=== PATIENT | male | born 1945 | race Caucasian/White ===

== ENCOUNTER → 2018-03-31 | Day surgery (SDC) | payer MEDICARE ==
[~2018-03-31] MED LIST: BENICAR20 MG PO; CELEBREX100 MG PO; CELEBREX200 MG PO; FINASTERIDE5 MG PO; FLOMAX0.4 MG PO; GLUCAGON FOR INJ 1 MG VIAL ONE; LEVOCETIRIZINE D5 MG PO; LOTREL 10-20 M1 EACH PO; MIDAZOLAM HCL 2 MG/2 ML VIAL ONE; MULTI-VITAMIN1 EACH PO; NABUMETONE500 MG PO; NEXIUM40 MG PO; PROPOFOL IV EMULSION 10 MG/ML 50 ML VIAL ONE; RANITIDINE HCL150 MG PO; Z.0.AMLODIPINE BESY1 PO; Z.0.ATENOLOL50 MG PO; Z.0.FLOMAX0.4 MG PO; Z.0.LIPITOR40 MG PO
--- OUTSIDE RECORDS SUMMARY | 2018-03-31 11:31 | XMS REPORT | Clinical Summary ---
Author Author [facility] Organization [facility] Address Unknown Phone Unavailable Care Team Providers Care Maintenance Shop Technician Name Role Phone Ponce Olguin MD PCP Allergies No Known Allergies Current Medications Prescription Sig. Disp. Refills Start End Date Status Date atenolol (TENORMIN) 25 MG 11/25/19 Active tablet 17 atorvastatin (LIPITOR) 10 11/25/19 Active MG tablet 17 esomeprazole (NexIUM) 40 01/15/20 Active MG capsule 17 finasteride (PROSCAR) 5 01/16/20 Active mg tablet 17 ranitidine (ZANTAC) 150 Take 150 mg by mouth 2 Active MG tablet (two) times a day. olmesartan (BENICAR) 20 Take 20 mg by mouth Active MG tablet daily. celecoxib (CeleBREX) 200 TAKE ONE CAPSULE BY MOUTH 60 capsule 2 03/29/20 Active MG capsule TWICE A DAY 18 celecoxib (CeleBREX) 200 Take 1 capsule (200 mg 60 capsule 3 03/04/20 03/29/20 Discontin MG capsule total) by mouth 2 (two) 17 18 ued times a day. Active Problems No known active problems Encounters Date Type Specialty Care Team Description 03/29/2018 Refill Orthopedic Surgery En Llamas MD after 03/30/2017 Family History Medical History Relation Name Comments Heart disease Brother Hypertension Brother Cancer Father Cancer Mother Heart disease Sister Hypertension Sister Relation Name Status Comments Brother Father Mother Sister Social History Tobacco Use Types Packs/Day Years Used Date Never Smoker Smokeless Tobacco: Never Used Alcohol Use Drinks/Week oz/Week Comments Yes Sex Assigned at Date Recorded Not on file Last Filed Vital Signs Not on file Plan of Treatment Health Maintenance Due Date Last Done Comments COLON CANCER SCREENING 1995 SHINGRIX VACCINE (#1) 1995 ZOSTER VACCINE 2005 PNEUMOCOCCAL 2010 POLYSACCHARIDE VACCINE AGE 65 AND OVER PNEUMOCOCCAL-13 2010 INFLUENZA VACCINE 01/04/2018 Results Not on fileafter 03/30/2017 Insurance Payer Benefit Subscriber ID Type Phone Address Plan / Group HUMANA HUMANA xxxxxxxxx [place] [address]
[2018-03-31 14:55] VITALS: BP 145/77
--- NOTE | 2018-03-31 16:07 | Operative Report ---
DATE OF PROCEDURE: March 31, 2018 REFERRING PHYSICIAN: Dr. Ponce Canada. PROCEDURE PERFORMED: Esophagogastroduodenoscopy with biopsies and a colonoscopy with biopsies. INDICATIONS FOR ESOPHAGOGASTRODUODENOSCOPY: Upper abdominal pain. History of melena. INDICATIONS FOR COLONOSCOPY: Personal history of colon polyps, colon cancer surveillance. MEDICATION: Patient was done under MAC. Please see anesthesiologist's note. PROCEDURE: With patient in the left lateral decubitus position, the flexible fiberoptic Olympus gastroscope was introduced into the esophagus under direct visualization without any difficulty. There was some patchy erythema noted in distal esophagus. The scope was then advanced with ease into the stomach traversing a small sliding hiatal hernia. Mucosa overlying the antrum and the body revealed some patchy erythema and mild to moderate edema and biopsies were obtained and sent to stain for H. pylori. There was a minute submucosal nodule also noted in the antrum that was biopsied. The pylorus was of normal contour and shape. Was intubated with ease and the scope was advanced all the way to the 2nd portion of the duodenum. The scope was then withdrawn slowly and there was a submucosal nodule noted in the 2nd portion of the duodenum and that was biopsied. There were several ulcers noted in the duodenal bulb and some had black exudate in the crater compatible with recent hemorrhage. The scope was then withdrawn back into the stomach and retroflexed. Mucosa overlying the fundus and cardia appeared to be within normal limits. The scope was then straightened out. The stomach was decompressed. Scope was subsequently withdrawn. Patient tolerated procedure well. IMPRESSION: 1. Distal esophagitis. 2. Small sliding hiatal hernia. 3. Gastritis biopsied. Biopsy sent to stain for H. pylori. 4. Submucosal nodule. Antrum biopsied. 5. Duodenal ulcers, some with stigmata of recent hemorrhage. 6. Minute submucosal nodule 2nd portion of duodenum biopsied. PLAN: Follow up histology. Initiate Nexium 40 mg 1 p.o. q.a.m. a.c. Continue Zantac 150 mg 1 p.o. nightly. PROCEDURE: Patient was then turned around and after adequate lubrication of the anal canal a flexible fiberoptic Olympus colonoscope was inserted into the rectum with ease and advanced all the way to the cecum. It was then withdrawn slowly. Mucosa overlying the cecum, ascending colon and transverse colon appeared to be within normal limits. Some mild patchy inflammatory changes were noted in the left colon and multiple biopsies were obtained. The scope was then retroflexed into the distal rectum and small internal hemorrhoids were noted, none of which was actively bleeding. The scope was then straightened out. The scope was subsequently withdrawn. Patient tolerated the procedure well. IMPRESSION 1. Mild patchy left-sided colitis. 2. Internal hemorrhoids, none actively bleeding. PLAN: Follow up histology. Initiate VSL#3 one p.o. daily. The patient might benefit from a followup colonoscopy in 5 years. Job#: [id number] GH cc:PONCE CANADA MD
== END | disposition home or self-care (01) ==
LOC: OR 11:27
PROVIDERS: ATTEND Internal Medicine Gastroenterology
DX: K29.70 Gastritis, unspecified, without bleeding (principal); K31.7 Polyp of stomach and duodenum; K51.50 Left sided colitis without complications; K26.9 Duodenal ulcer, unspecified as acute or chronic, without hemorrhage or perforation; K31.89 Other diseases of stomach and duodenum; K21.9 Gastro-esophageal reflux disease without esophagitis; K63.89 Other specified diseases of intestine; K20.9 Esophagitis, unspecified; K44.9 Diaphragmatic hernia without obstruction or gangrene; K64.8 Other hemorrhoids; I10 Essential (primary) hypertension; E66.01 Morbid (severe) obesity due to excess calories; Z01.810 Encounter for preprocedural cardiovascular examination; Z85.51 Personal history of malignant neoplasm of bladder; Z87.891 Personal history of nicotine dependence
CPT/HCPCS: 43239; 45380; 88305; 88312; 93005; J1610; J2250; 45378

== ENCOUNTER → 2018-05-10 | Day surgery (SDC) | payer MEDICARE ==
[2018-05-08 15:18] LABS: BASOPHILS # (AUTO) 0.1 (0.0-0.1); BASOPHILS % 0.8 % (0.0-1.0); EOSINOPHILS # (AUTO) 0.3 (0.0-0.4); EOSINOPHILS % 3.4 % (0.0-6.0); HEMATOCRIT 42.2 % (38.2-49.6); HEMOGLOBIN 14.2 g/dL (14.0-18.0); LYMPHOCYTES % 24.7 % (18.0-39.1); MEAN CORPUSCULAR HEMOGLOBIN 30.1 pg (28-32); MEAN CORPUSCULAR HGB CONC 33.6 g/dL (31-35); MEAN CORPUSCULAR VOLUME 89.4 fL (81-99); MONOCYTES # (AUTO) 0.9 (0.2-0.8); MONOCYTES % 11.1 % (4.4-11.3); NEUTROPHILS # (AUTO) 4.7 (2.1-6.9); NEUTROPHILS % 59.7 % (38.7-80.0); PLATELET COUNT 208 x10e3/uL (140-360); RED BLOOD COUNT 4.72 x10e6/uL (4.3-5.7); RED CELL DISTRIBUTION WIDTH 12.4 % (11.7-14.4)
--- NOTE | 2018-05-08 15:35 | Diagnostic Imaging Report ---
EXAMINATION: PA and lateral views of the chest. COMPARISON: None CLINICAL HISTORY: Preadmitted for urological procedure DISCUSSION: The lungs are well-inflated. Hazy opacity in the right middle and lower lobes may reflect prominent epicardial fat. Otherwise no consolidation, pleural effusion, or pneumothorax. Tortuous thoracic aorta with otherwise normal cardiomediastinal contour. Cervical spine fusion hardware. No acute osseous abnormality. IMPRESSION: No acute cardiopulmonary abnormalities. Signed by: Dr. Shahriar Doshi M.D. on 05/08/2018 3:32 PM
[~2018-05-10] MED LIST changes: +ACETAMINOPHEN 1000 MG/100 ML IV ONE; +CEFTRIAXONE SOD 1 GM VIAL ONE; +DEXAMETHASONE SOD PHOS INJ 4 MG/ML VIAL ONE; +EPHEDRINE SULFATE INJ 50 MG/10 ML SYR ONE; +FENTANYL CITRATE/PF 100MCG/2 ML INJ ONE; +GENTAMICIN 80MG/NS 100 ML 200 ML IV ONE; -GLUCAGON FOR INJ 1 MG VIAL ONE; +LIDOCAINE HCL 2% LOCAL INJ 5 ML SDV VIAL INJ ONE; +ONDANSETRON HCL INJ 2 MG/ML VIAL ONE; +PROPOFOL IV EMULSION 10 MG/ML 20 ML VIAL ONE; -PROPOFOL IV EMULSION 10 MG/ML 50 ML VIAL ONE; +SEVOFLURANE INHAL SOLN 250 ML PEN BTL ONE
--- OUTSIDE RECORDS SUMMARY | 2018-05-10 06:59 | XMS REPORT | Clinical Summary ---
Author Author [facility] Address Unknown Phone Unavailable Care Team Providers Care Wall Insulation Sprayer Name Role Phone Ponce Olguin MD PCP Allergies No Known Allergies Medications End Date Status Medication Sig Dispensed Refills Start Date Active atenolol (TENORMIN) 25 MG 0 tablet 7 Active atorvastatin (LIPITOR) 10 0 MG tablet 7 Active esomeprazole (NexIUM) 40 0 01/14/201 MG capsule 7 Active finasteride (PROSCAR) 5 0 mg tablet 7 Active ranitidine (ZANTAC) 150 Take 150 mg 0 MG tablet by mouth 2 (two) times a day. Active olmesartan (BENICAR) 20 Take 20 mg by 0 MG tablet mouth daily. Active celecoxib (CeleBREX) 200 TAKE ONE 60 capsule 2 03/29/201 MG capsule CAPSULE BY 8 MOUTH TWICE A DAY 03/29/2018 Discontinued celecoxib (CeleBREX) 200 Take 1 60 capsule 3 03/04/201 MG capsule capsule (200 7 mg total) by mouth 2 (two) times a day. Active Problems No known active problems Encounters Care Team Description Date Type Specialty En Llamas MD 03/29/2018 Refill Orthopedic Surgery after 05/09/2017 Family History Medical History Relation Name Comments Heart disease Brother Hypertension Brother Cancer Father Cancer Mother Heart disease Sister Hypertension Sister Relation Name Status Comments Brother Father Mother Sister Social History Date Tobacco Use Types Packs/Day Years Used Never Smoker Smokeless Tobacco: Never Used Alcohol Use Drinks/Week oz/Week Comments Yes Sex Assigned at Date Recorded Not on file Industry Job Start Date Occupation Not on file Not on file Not on file Travel End Travel History Travel Start No recent travel history available. Last Filed Vital Signs Not on file Plan of Treatment Health Maintenance Due Date Last Done Comments COLON CANCER SCREENING 1995 SHINGRIX VACCINE (1 of 2) 1995 ZOSTER VACCINE 2005 PNEUMOCOCCAL 2010 POLYSACCHARIDE VACCINE AGE 65 AND OVER PNEUMOCOCCAL-13 2010 INFLUENZA VACCINE 01/04/2018 Results Not on fileafter 05/09/2017 Insurance Payer Benefit Subscriber ID Type Phone Address Plan / Group HUMANA HUMANA xxxxxxxxx PPO CHOICE CARE PPO Advance Directives Patient has advance care planning documents on file. For more information, ochoa olvera contact: Brian Anderson [address] [place] [address]
--- OUTSIDE RECORDS SUMMARY | 2018-05-10 06:59 | XMS REPORT ---
[facility] Address Unknown Phone Unavailable Care Team Providers Care Education Nurse Name Role Phone CHAMP SHETTY Unavailable Unavailable Problems This patient has no known problems. Allergies, Adverse Reactions, Alerts This patient has no known allergies or adverse reactions. Medications This patient has no known medications. Results Test Description Test Time Test Comments Text Results Atomic Results Result Comments CHEST 2 VIEWS 2018-05-08 15:29:00 [facility] [address] [place] [address] Patient Name: RICH MELGOZA MR #: [id number] : 1945 Age/Sex: 72/M Req #: [id number] [facility] Physician: Ordered by: CHAMP SHETTY MD Report #: [id number] Location: OR Room/Bed: Procedure: [id number] DX/CHEST 2 VIEWS Exam Date: 05/08/18 Exam Time: 1520 REPORT STATUS: Signed EXAMINATION: PA and lateral views of the chest. COMPARISON: None CLINICAL HISTORY: Preadmitted for urological procedure DISCUSSION: The lungs are well-inflated. Hazy opacity in the right middle and lower lobes may reflect prominent epicardial fat. Otherwise no consolidation, pleural effusion, or pneumothorax. Tortuous thoracic aorta with otherwise normal cardiomediastinal contour. Cervical spine fusion hardware. No acute osseous abnormality. IMPRESSION: No acute cardiopulmonary abnormalities. Signed by: Dr. Travis Agurire M.D. on 05/08/2018 3:32 PM Dictated By: TRAVIS AGUIRRE MD [id number] Transcribed By: KENNETH on 05/08/18 153 COPY TO: CHAMP SHETTY MD
[2018-05-10 12:00] VITALS: BP 140/64
--- NOTE | 2018-05-10 19:56 | Operative Report ---
DATE OF PROCEDURE: May 10, 2018 PREOPERATIVE DIAGNOSES: 1. Obstructive benign prostatic hypertrophy. 2. Bladder cancer. POSTOPERATIVE DIAGNOSES: 1. Obstructive benign prostatic hypertrophy. 2. Bladder cancer. OPERATIONS PERFORMED: 1. Cystourethroscopy with bilateral ureteral catheterization and retrograde ureteropyelography (separate procedure performed for the bladder cancer). 2. Interpretation of retrograde ureteropyelography. 3. Supervision of fluoroscopy, no radiologist present. 4. Cystourethroscopy with transurethral implantation of UroLift implants x4 (separate procedure performed for the obstructive benign prostatic hypertrophy). ANESTHESIA: General. COMPLICATIONS: None. CLINICAL SUMMARY: Vinnie Guerrero is a 72-year-old man with obstructive BPH. The patient has been on Proscar and Flomax, and is failing medical therapy. The patient has a history of bladder cancer and has been undergoing regular surveillance. He is brought to the operating room today for UroLift implants in hopes of improving his symptomatology and potentially allowing the patient to decrease his medication use. He is aware of the risks of bleeding, infection, injury to adjacent structures, need for additional procedures, and elected to proceed. PROCEDURE IN DETAIL: Informed consent was verified. Vinnie Guerrero was properly identified, taken to the operating room, and placed on the cystoscopy table in a supine position. Anesthesia was uneventfully begun. The patient was then carefully and gently repositioned in the dorsal lithotomy position with all pressure points well padded. His genitalia were prepared and draped in usual sterile fashion. The 22.5-Central African cystourethroscope sheath with the visual obturator in place was atraumatically inserted into the patient's urethra. It was guided down the unremarkable distal urethra, through some wide caliber non-clinically significant, non-obstructing proximal urethral and lisandra-sphincteric strictures. We passed the normal sphincter region and went through the prostate bed, which was significant for bilobar prostatic hypertrophy with a slightly elevated median bar. Panendoscopy of the urinary bladder revealed mild trabeculations, but no tumors, no stones, no diverticula. No suspicious mucosal lesions were identified. Normally positioned and configured ureteral orifices were noted. An 8-Central African catheter was used to cannulate each ureter, and retrograde ureteral pyelograms were performed. Interpretation of retrograde ureteropyelography: Contrast was instilled in retrograde fashion bilaterally. There were no tumors, no stones, and no diverticula. Unobstructed drainage was observed bilaterally fluoroscopically. The cystoscope was withdrawn. A 20-Central African UroLift cystoscope was inserted atraumatically with the obturator in place. We then proceeded by implanting UroLift implants anterolaterally on either side 1.5 cm distal to the bladder neck and at the level of the verumontanum. Once all 4 implants were inserted, visualization with the cystoscope revealed that there was a continuous open anterior channel with excellent hemostasis. The bladder was drained. The cystoscope was withdrawn. A belladonna and opium suppository was placed revealing a 40 g prostate that is smooth, non-fluctuant, and without any nodules. The patient was then uneventfully reversed from anesthesia and taken to the recovery room in stable condition. There were no complications to the procedure. The patient tolerated the procedure well. Explicit postop instructions were given. We will follow the patient up in the office, at which point in time, will perform uroflowmetry and bladder ultrasonography. Job#: [id number]
== END | disposition home or self-care (01) ==
LOC: OR 06:56
PROVIDERS: ATTEND Urology
DX: N40.1 Benign prostatic hyperplasia with lower urinary tract symptoms (principal); N13.8 Other obstructive and reflux uropathy; C67.9 Malignant neoplasm of bladder, unspecified; N32.89 Other specified disorders of bladder; G47.33 Obstructive sleep apnea (adult) (pediatric); I10 Essential (primary) hypertension; K44.9 Diaphragmatic hernia without obstruction or gangrene; K25.9 Gastric ulcer, unspecified as acute or chronic, without hemorrhage or perforation; R00.1 Bradycardia, unspecified; I44.4 Left anterior fascicular block; K21.9 Gastro-esophageal reflux disease without esophagitis; F41.9 Anxiety disorder, unspecified; Z01.812 Encounter for preprocedural laboratory examination; Z01.818 Encounter for other preprocedural examination; Z87.891 Personal history of nicotine dependence
CPT/HCPCS: 52005; C9740; 36415; 71046; 74420; 85025; J0696; J1100; J1580; J2001; J2250; J2405; L8699

== ENCOUNTER → 2018-05-24 | Day surgery (SDC) | payer MEDICARE ==
[~2018-05-24] MED LIST changes: -ACETAMINOPHEN 1000 MG/100 ML IV ONE; -CEFTRIAXONE SOD 1 GM VIAL ONE; -DEXAMETHASONE SOD PHOS INJ 4 MG/ML VIAL ONE; -EPHEDRINE SULFATE INJ 50 MG/10 ML SYR ONE; -GENTAMICIN 80MG/NS 100 ML 200 ML IV ONE; -LIDOCAINE HCL 2% LOCAL INJ 5 ML SDV VIAL INJ ONE; -ONDANSETRON HCL INJ 2 MG/ML VIAL ONE; -PROPOFOL IV EMULSION 10 MG/ML 20 ML VIAL ONE; +PROPOFOL IV EMULSION 10 MG/ML 50 ML VIAL ONE; -SEVOFLURANE INHAL SOLN 250 ML PEN BTL ONE
--- OUTSIDE RECORDS SUMMARY | 2018-05-24 07:12 | XMS REPORT | Clinical Summary ---
Author Author [facility] Organization [facility] Address Unknown Phone Unavailable Care Team Providers Care Log Haul Operator Name Role Phone Ponce Olguin MD PCP [...] Llamas MD 03/29/2018 Refill Orthopedic Surgery after 05/23/2017 Family History Medical History Relation Name Comments [...] Last Done Comments COLON CANCER SCREENING 1995 SHINGLES VACCINES (1995 2) PNEUMOCOCCAL 2010 POLYSACCHARIDE VACCINE AGE 65 AND OVER PNEUMOCOCCAL-13 2010 INFLUENZA VACCINE 01/04/2018 Results Not on fileafter 05/23/2017 Insurance Payer Benefit Subscriber ID Type Phone Address Plan / Group HUMANA HUMANA xxxxxxxxx PPO CHOICE CARE PPO Advance Directives Patient has advance care planning documents on file. For more information, ochoa olvera contact: Brian Anderson [address] [place] [address]
[2018-05-24 09:40] VITALS: BP 110/74
--- NOTE | 2018-05-24 10:58 | Operative Report ---
DATE OF PROCEDURE: May 24, 2018 REFERRING PHYSICIAN: Dr. Pattie Canada PROCEDURE PERFORMED: Esophagogastroduodenoscopy with biopsy. INDICATIONS FOR EGD: History of gastric submucosal nodule. MEDICATION: Patient was done under MAC. Please see anesthesiologist's note. PROCEDURE: With patient in the left lateral decubitus position, the flexible fiberoptic Olympus gastroscope was introduced into the esophagus under direct visualization without any difficulty. There was some patchy erythema noted in the distal esophagus. The scope was then advanced with ease into the stomach traversing a small sliding hiatal hernia. Mucosa overlying the antrum and the body revealed some patchy areas of erythema. The previously described submucosal nodule was noted in the proximal along the greater curvature that was extensively biopsied. The pylorus was of normal contour and shape. It was intubated with ease. The scope was advanced all the way to the 2nd portion of the duodenum. The scope was then withdrawn slowly. An approximately 4-mm nodule was noted at the junction of the bulb and 2nd portion that was biopsied. The scope was then withdrawn back into the stomach and retroflexed. The mucosa overlying the fundus and the cardia appeared to be within normal limits. The scope was then straightened out. It was subsequently withdrawn. Patient tolerated the procedure well. IMPRESSION 1. Distal esophagitis, mild. 2. Small sliding hiatal hernia. 3. Gastritic submucosal nodule, antrum, extensively biopsied. 4. An approximately 4-mm nodule junction of bulb and 2nd portion, biopsied. PLAN: Follow up histology. Continue PPI and H2 leigh therapy. Job#: [id number] [place] cc:PATTIE CANADA MD
== END | disposition home or self-care (01) ==
LOC: ENDO 07:09
PROVIDERS: ATTEND Internal Medicine Gastroenterology
DX: K26.3 Acute duodenal ulcer without hemorrhage or perforation (principal); K29.80 Duodenitis without bleeding; K31.89 Other diseases of stomach and duodenum; K44.9 Diaphragmatic hernia without obstruction or gangrene; K20.9 Esophagitis, unspecified; I10 Essential (primary) hypertension; K21.9 Gastro-esophageal reflux disease without esophagitis; I44.0 Atrioventricular block, first degree; I44.4 Left anterior fascicular block; Z85.51 Personal history of malignant neoplasm of bladder; Z87.891 Personal history of nicotine dependence
CPT/HCPCS: 43239; 88305; 88312; J2250

== ENCOUNTER → 2019-05-18 | Outpatient (CLI) | payer MEDICARE ==
[~2019-05-18] MED LIST changes: -FENTANYL CITRATE/PF 100MCG/2 ML INJ ONE; -MIDAZOLAM HCL 2 MG/2 ML VIAL ONE; -PROPOFOL IV EMULSION 10 MG/ML 50 ML VIAL ONE
--- NOTE | 2019-05-18 13:26 | Diagnostic Imaging Report ---
EXAM: Lumbar spine radiographs - 3 views INDICATION: Degenerative disc changes. COMPARISON: None FINDINGS: BONES: For the purposes of this study, the level of the last true rib will be considered T12. There are 6 lumbar type vertebral bodies with pseudoarthrosis on the right at L6 S1. There is mild stepwise retrolisthesis from L2 through L5. No acute displaced fractures. Mild anterior loss of vertebral body height at L2 and L4. DISCS: Mild to moderate multilevel degenerative disc changes, most pronounced at L4-L5 and L5-L6. JOINTS: Moderate facet degenerative changes in the lower lumbar spine. SOFT TISSUES: Atherosclerotic vascular calcifications. IMPRESSION: Mild to moderate degenerative disc and moderate facet degenerative changes in the lower lumbar spine. Mild age indeterminate anterior loss of vertebral body heights at L2 and L4. Signed by: Dr. Eliz Roberts MD on 05/18/2019 1:23 PM
== END ==
LOC: RAD 11:22
PROVIDERS: ATTEND Internal Medicine
DX: M51.36 Other intervertebral disc degeneration, lumbar region (principal)
CPT/HCPCS: 72100

== ENCOUNTER → 2020-01-24 | Day surgery (SDC) | payer MEDICARE, OTHER ==
[2020-01-21 09:47] LABS: BASOPHILS # (AUTO) 0.1 (0.0-0.1); BASOPHILS % 0.7 % (0.0-1.0); EOSINOPHILS # (AUTO) 0.3 (0.0-0.4); EOSINOPHILS % 4.7 % (0.0-6.0); HEMATOCRIT 45.8 % (38.2-49.6); HEMOGLOBIN 14.9 g/dL (14.0-18.0); LYMPHOCYTES # (AUTO) 1.8 (1.0-3.2); LYMPHOCYTES % 25.5 % (18.0-39.1); MEAN CORPUSCULAR HEMOGLOBIN 28.6 pg (28-32); MEAN CORPUSCULAR HGB CONC 32.5 g/dL (31-35); MEAN CORPUSCULAR VOLUME 87.9 fL (81-99); MONOCYTES # (AUTO) 0.6 (0.2-0.8); MONOCYTES % 8.9 % (4.4-11.3); NEUTROPHILS # (AUTO) 4.1 (2.1-6.9); NEUTROPHILS % 59.9 % (38.7-80.0); PLATELET COUNT 201 x10e3/uL (140-360); RED BLOOD COUNT 5.21 x10e6/uL (4.3-5.7); RED CELL DISTRIBUTION WIDTH 12.8 % (11.7-14.4)
[2020-01-21 10:06] LABS: ALANINE AMINOTRANSFERASE 28 IU/L (0-55); ALBUMIN/GLOBULIN RATIO 1.3 (0.8-2.0); ALKALINE PHOSPHATASE 77 IU/L (40-150); BLOOD UREA NITROGEN 22 mg/dL (7-26); BUN/CREATININE RATIO 20 (6-25); CALCIUM 9.7 mg/dL (8.4-10.2); CARBON DIOXIDE 27 mmol/L (22-29); CHLORIDE 104 mmol/L (98-107); CREATININE, SERUM 1.12 mg/dL (0.72-1.25); EST GLOMERULAR FILTRATION RATE > 60 ML/MIN (60-); GLUCOSE 136 mg/dL (74-118); SODIUM 138 mmol/L (136-145)
[~2020-01-24] VITALS: Ht 177.8 cm; Wt 81.6 kg
[2020-01-24] VITALS (8 sets, daily range): BP systolic 114–158; BP diastolic 65–80
[~2020-01-24] MED LIST changes: +ALPRAZOLAM 0.5 MG TAB ONE; +ATORVASTATIN CA10 MG PO; +DIPHENHYDRAMINE HCL 25 MG CAP ONE; +FENTANYL CITRATE/PF 100MCG/2 ML INJ ONE; +HEPARIN SOD/SOD CHLORIDE 2,000 ML ONE; +IOPAMIDOL 370 MG/ML 200 ML INFUS..BTL INJ ONE; +LIDOCAINE HCL 2% LOCAL 20 ML VIAL ONE; +LOSARTAN POTAS100 MG PO; +METOPROLOL SUCC25 MG PO; +MIDAZOLAM HCL 2 MG/2 ML VIAL ONE; +PAMELOR25 MG PO; +SODIUM CHLORIDE 0.9% 1000ML 1,000 ML ONE
--- NOTE | 2020-01-24 14:37 | NUR ---
1437 pm RECEIVING NOTE [facility] [facility] [employer] DEPT............................................................... Bedside report received from Ligia. Identifierx2. Alert oriented and appropriate, PERRLA, respirations even and unlabored to room air. Pulses x4 extremities equal and strong. Pedal pulses PT/DP X4 and marked. Cap fill brisk < 3 sec. Rt TR band ok to decrease [id number] No gross issues pain,pallor pressure or dysrhythmia. Skin warm and dry integrity appears D/I. IV 20g to left hand at 75cchr presents healthy w/o s/s of infiltration or complaint. Abdomen soft and supple. pt offered toileting, denies need to urinate or defecate. No personal affects with patient. Family at bedside. Pt and family verbalizes understanding of POC. ds/rn Currently w/o complaint of pain or need. ds/rn
--- NOTE | 2020-01-24 15:00 | NUR ---
1500pm RADIAL/PEDAL COMPRESSION REMOVAL NOTE: Initial Cuff volume 12 cc 1500pm -2xcc Removed No hematoma/bleeding noted with normal neurovascular function. 1515pm -5cc Removed No hematoma/ bleeding noted with normal neurovascular function. 1530pm -5cc Removed No hematoma/bleeding noted with normal neurovascular function. Air removal completed. Stasis achieved sterile 2x2,Tegaderm, Coban dressing No hematoma, bleeding noted with normal neurovascular function. Wrist splint in place. Pt instructed on POC. Ds/Rn
--- NOTE | 2020-01-24 15:33 | NUR ---
1533 Dr Hoang spoke with family regarding pt status and result ds/rn
--- NOTE | 2020-01-24 16:00 | NUR ---
1600p Pt meets DC criteria. Rt Wrist assessed for s/s of complication and presence of hematoma. Skin warm, dry, no discolor, and pulses present. IV removed from . Distal tip appears intact. VS WNL. Pt denies pain, sob, or need at this time. Family at bedside. Review of discharge paperwork and follow up instructions. verbalized understanding. Pt to wheelchair and transported to front of hospital. Transferred to private vehicle under own strength w/o incident with DC paperwork in hand. - ds/rn
--- NOTE | 2020-04-10 11:38 | Operative Report ---
DATE OF PROCEDURE: 01/24/2020 SURGEON: Evan Hoang DO PROCEDURES PERFORMED: 1. Conscious sedation, 30 minutes. 2. Selective coronary angiography x2. 3. Left heart catheterization. PREPROCEDURE DIAGNOSIS: Abnormal stress test with no coronary artery disease. POST PROCEDURE DIAGNOSIS: Abnormal stress test with no coronary artery disease. ESTIMATED BLOOD LOSS: Less than 20 mL. SPECIMENS REMOVED: None. PROCEDURE IN DETAIL: After informed consent was obtained, the patient was brought to the cardiac cath laboratory in a fasting and nonsedated state. Bilateral groins were prepped and draped in the usual sterile fashion. A 2% lidocaine was infiltrated over the right wrist for local anesthesia. Using micropuncture needle, the right radial artery was accessed via modified Seldinger technique and a 5/6 slender sheath was placed. The patient received fentanyl and midazolam administered by the slabber nurse and his neurologic and physiologic status was monitored by myself and slabber staff for 30 minutes. Next, diagnostic selective angiography and left heart catheterization were performed using a TIG catheter. The patient tolerated the procedure well, no immediate complications, transferred back to his room in stable condition. PROCEDURAL FINDINGS: 1. Left main coronary artery is patent without significant coronary artery disease. 2. Left anterior descending coronary has a mid 40% non-flow limiting stenosis. The diagonal branches are patent. 3. The ramus intermedius coronary artery is a medium caliber vessel with luminal irregularities. 4. The left circumflex coronary artery provides three small obtuse marginal vessels with no significant obstructive disease. 5. The right coronary artery is patent proximally and has a distal RCA 30% stenosis. This provides flow into a posterolateral and posterior descending coronary arteries. Left ventricular end-diastolic pressure was 15 mmHg. No aortic valve gradient present upon pullback. IMPRESSION: Nonobstructive coronary artery disease. RECOMMENDATIONS: Medical therapy. Evan Hoang DO BM/MODL /[id number]
== END | disposition home or self-care (01) ==
LOC: CATH LAB 10:40
PROVIDERS: ATTEND Internal Medicine Interventional Cardiology
DX: I25.118 Atherosclerotic heart disease of native coronary artery with other forms of angina pectoris (principal); R94.39 Abnormal result of other cardiovascular function study; Z01.812 Encounter for preprocedural laboratory examination; Z11.59 Encounter for screening for other viral diseases
CPT/HCPCS: 36415; 80053; 85025; 93458; C1769; C1887; C1894; J2001; J2250; J3010; J7030; Q9967; U0002; 99152

== ENCOUNTER → 2020-03-27 | Outpatient (CLI) | payer MEDICARE ==
[~2020-03-27] MED LIST changes: -ALPRAZOLAM 0.5 MG TAB ONE; -DIPHENHYDRAMINE HCL 25 MG CAP ONE; -FENTANYL CITRATE/PF 100MCG/2 ML INJ ONE; -HEPARIN SOD/SOD CHLORIDE 2,000 ML ONE; -IOPAMIDOL 370 MG/ML 200 ML INFUS..BTL INJ ONE; -LIDOCAINE HCL 2% LOCAL 20 ML VIAL ONE; -MIDAZOLAM HCL 2 MG/2 ML VIAL ONE; -SODIUM CHLORIDE 0.9% 1000ML 1,000 ML ONE
--- NOTE | 2020-03-27 11:16 | Diagnostic Imaging Report ---
EXAM: CT Chest WITHOUT intravenous contrast 03/27/2020 10:10 AM INDICATION: ^[id number] ^1010 ^CHRONIC BRONCHITIS COMPARISON: 05/08/2018 x-ray TECHNIQUE: Chest was scanned utilizing a multidetector helical scanner from the lung apex through the level of the adrenal glands without administration of IV contrast. Coronal and sagittal reformations were obtained. Routine protocol was performed. IV CONTRAST: None RADIATION DOSE: Total DLP: 248 mGy*cm. Dose modulation, iterative reconstruction, and/or weight based adjustment of the mA/kV was utilized to reduce the radiation dose to as low as reasonably achievable. COMPLICATIONS: None FINDINGS: LINES/ TUBES: None. LUNGS AND AIRWAYS: Negative for focal consolidation. Retrocardiac reticular groundglass opacities are probably related to atelectatic changes. Mild emphysematous changes are noted. Large airways are patent. There is a 2 mm subpleural nodule within the lingula (image 80). There is a 2 mm subpleural nodule at the right lung base (image 92). PLEURA: The pleural spaces are clear. HEART AND MEDIASTINUM: The thyroid gland is normal. No mediastinal, hilar or axillary lymphadenopathy. Heart is borderline enlarged. There is no pericardial effusion. A few scattered coronary artery calcifications are noted. UPPER ABDOMEN: The dependent gallstones are noted within the partially visualized gallbladder. BONES: No acute osseous abnormality. Anterior cervical fusion changes are noted at C7-T1. No suspicious lytic or blastic lesion is identified. Moderate degenerative changes of the shoulder joints are noted. SOFT TISSUES: Unremarkable. IMPRESSION: 1. No acute suspicious infectious infiltrate. 2. Retrocardiac atelectasis is noted with a few scattered reticular groundglass opacities. Mild emphysematous changes are noted. 3. A few scattered 2 mm subpleural pulmonary nodules. Given size and location are almost certainly incidental however if patient is at high risk for cancer professional recommendations include possible 12-month follow-up noncontrast CT of the chest. Signed by: True Fuentes MD on 03/27/2020 11:13 AM
== END ==
LOC: CT 09:44
PROVIDERS: ATTEND Internal Medicine
DX: J41.0 Simple chronic bronchitis (principal); F17.211 Nicotine dependence, cigarettes, in remission
CPT/HCPCS: 71250

== ENCOUNTER → 2021-03-31 | Day surgery (SDC) | payer MEDICARE ==
[2021-03-26 10:58] LABS: BASOPHILS # (AUTO) 0.1 (0.0-0.1); BASOPHILS % 0.8 % (0.0-1.0); EOSINOPHILS # (AUTO) 0.3 (0.0-0.4); EOSINOPHILS % 3.6 % (0.0-6.0); HEMATOCRIT 42.6 % (38.2-49.6); HEMOGLOBIN 14.2 g/dL (14.0-18.0); LYMPHOCYTES # (AUTO) 1.5 (1.0-3.2); LYMPHOCYTES % 21.3 % (18.0-39.1); MEAN CORPUSCULAR HGB CONC 33.3 g/dL (31-35); MEAN CORPUSCULAR VOLUME 89.9 fL (81-99); MONOCYTES # (AUTO) 0.7 (0.2-0.8); MONOCYTES % 9.4 % (4.4-11.3); NEUTROPHILS # (AUTO) 4.7 (2.1-6.9); NEUTROPHILS % 64.6 % (38.7-80.0); PLATELET COUNT 201 x10e3/uL (140-360); RED BLOOD COUNT 4.74 x10e6/uL (4.3-5.7); RED CELL DISTRIBUTION WIDTH 12.5 % (11.7-14.4)
[2021-03-26 11:20] LABS: ALBUMIN 4.1 g/dL (3.5-5.0); ALBUMIN/GLOBULIN RATIO 1.6 (0.8-2.0); ANION GAP 11.5 mmol/L (8-16); CALCIUM 9.1 mg/dL (8.4-10.2); CREATININE, SERUM 1.21 mg/dL (0.72-1.25); POTASSIUM 4.5 mmol/L (3.5-5.1)
[~2021-03-31] VITALS: Ht 177.8 cm; Wt 81.6 kg
[2021-03-31] VITALS (9 sets, daily range): BP systolic 132–170; BP diastolic 70–94
[~2021-03-31] MED LIST changes: +ALPRAZOLAM 0.5 MG TAB ONE; +ASPIRIN 325 MG TAB ONE; +ATORVASTATIN CA20 MG PO; +BIVALRIUDIN 250 MG/VIAL VIAL IV ONE; +DIPHENHYDRAMINE HCL 25 MG CAP ONE; +FENTANYL CITRATE/PF 100MCG/2 ML INJ ONE; +HEPARIN SOD/SOD CHLORIDE 2,000 ML ONE; +IOPAMIDOL 370 MG/ML 200 ML INFUS..BTL INJ ONE; +LIDOCAINE HCL 2% LOCAL 20 ML VIAL ONE; +MIDAZOLAM HCL 2 MG/2 ML VIAL ONE; +OXYBUTYNIN CHLOR5 MG PO; +PRASUGREL 10 MG TAB ONE; +SODIUM CHLORIDE 0.9% 1000ML 1,000 ML ONE; +SODIUM CHLORIDE 0.9% 50ML 50 ML ONE
== END | disposition home or self-care (01) ==
LOC: CATH LAB 12:35
PROVIDERS: ATTEND Internal Medicine Interventional Cardiology
DX: I25.118 Atherosclerotic heart disease of native coronary artery with other forms of angina pectoris (principal); R94.39 Abnormal result of other cardiovascular function study; I10 Essential (primary) hypertension; E78.5 Hyperlipidemia, unspecified; G47.33 Obstructive sleep apnea (adult) (pediatric); Z01.812 Encounter for preprocedural laboratory examination; Z20.822 Contact with and (suspected) exposure to COVID-19
CPT/HCPCS: 93454; C9600; 36415; 76937; 80053; 82948; 83880; 85025; 92928; 99152; 99153; C1874; C1887; C1894; J0583; J2001; J2250; J3010; J7030; Q9967; U0002

== ENCOUNTER → 2022-02-25 | Outpatient (CLI) | payer MEDICARE ==
[~2022-02-25] MED LIST changes: -ALPRAZOLAM 0.5 MG TAB ONE; -ASPIRIN 325 MG TAB ONE; -BIVALRIUDIN 250 MG/VIAL VIAL IV ONE; +DIATRIZOATE MEGL/DIATRIZOA SOD 30 ML BTL PO ONE; -DIPHENHYDRAMINE HCL 25 MG CAP ONE; -FENTANYL CITRATE/PF 100MCG/2 ML INJ ONE; -HEPARIN SOD/SOD CHLORIDE 2,000 ML ONE; +IOPAMIDOL 300MG/ML 100 ML INFUS..BTL IV ONE; +IOPAMIDOL 370 MG/ML 100 ML INFUS..BTL INJ ONE; -IOPAMIDOL 370 MG/ML 200 ML INFUS..BTL INJ ONE; -LIDOCAINE HCL 2% LOCAL 20 ML VIAL ONE; -MIDAZOLAM HCL 2 MG/2 ML VIAL ONE; -PRASUGREL 10 MG TAB ONE; -SODIUM CHLORIDE 0.9% 1000ML 1,000 ML ONE; -SODIUM CHLORIDE 0.9% 50ML 50 ML ONE
[2022-02-25 16:27] LABS: CREATININE, SERUM 1.1 mg/dL (0.72-1.25)
== END ==
LOC: CT 15:41
PROVIDERS: ATTEND Internal Medicine Gastroenterology
DX: R10.32 Left lower quadrant pain (principal); I10 Essential (primary) hypertension; Z68.26 Body mass index [BMI] 26.0-26.9, adult; Z86.010 Personal history of colon polyps
CPT/HCPCS: 36415; 74177; 82565; 84520; Q9963; Q9967 ×2

== ENCOUNTER → 2022-11-25 | Day surgery (SDC) | payer MEDICARE ==
[2022-11-17 10:58] LABS: BASOPHILS % 0.6 % (0.0-1.0); EOSINOPHILS # (AUTO) 0.2 (0.0-0.4); HEMATOCRIT 35.8 % (38.2-49.6); HEMOGLOBIN 12.1 g/dL (14.0-18.0); LYMPHOCYTES # (AUTO) 1.3 (1.0-3.2); LYMPHOCYTES % 19.4 % (18.0-39.1); MEAN CORPUSCULAR HEMOGLOBIN 30.3 pg (28-32); MEAN CORPUSCULAR HGB CONC 33.8 g/dL (31-35); MEAN CORPUSCULAR VOLUME 89.7 fL (81-99); MONOCYTES # (AUTO) 0.6 (0.2-0.8); MONOCYTES % 9.2 % (4.4-11.3); NEUTROPHILS # (AUTO) 4.5 (2.1-6.9); NEUTROPHILS % 67.3 % (38.7-80.0); PLATELET COUNT 168 x10e3/uL (140-360); RED BLOOD COUNT 3.99 x10e6/uL (4.3-5.7); RED CELL DISTRIBUTION WIDTH 12.5 % (11.7-14.4)
[~2022-11-25] MED LIST changes: -DIATRIZOATE MEGL/DIATRIZOA SOD 30 ML BTL PO ONE; +GLUCAGON FOR INJ 1 MG VIAL ONE; -IOPAMIDOL 300MG/ML 100 ML INFUS..BTL IV ONE; -IOPAMIDOL 370 MG/ML 100 ML INFUS..BTL INJ ONE; +LACTATED RINGER'S 1,000 ML ONE; +LIDOCAINE HCL 2% LOCAL INJ 5 ML SDV VIAL INJ ONE; +PROPOFOL IV EMULSION 0 ML IV ONE
[2022-11-25 15:25] VITALS: BP 149/91; PULSE 16; RESP 18; O2SAT 97
== END | disposition home or self-care (01) ==
LOC: OR 10:33
PROVIDERS: ATTEND Internal Medicine Gastroenterology
DX: D12.5 Benign neoplasm of sigmoid colon (principal); K64.8 Other hemorrhoids; K29.50 Unspecified chronic gastritis without bleeding; G47.33 Obstructive sleep apnea (adult) (pediatric); I10 Essential (primary) hypertension; I25.10 Atherosclerotic heart disease of native coronary artery without angina pectoris; I25.2 Old myocardial infarction; M06.9 Rheumatoid arthritis, unspecified; M19.90 Unspecified osteoarthritis, unspecified site; Z01.810 Encounter for preprocedural cardiovascular examination; Z01.812 Encounter for preprocedural laboratory examination; Z79.82 Long term (current) use of aspirin; Z79.899 Other long term (current) drug therapy; Z68.25 Body mass index [BMI] 25.0-25.9, adult; Z85.51 Personal history of malignant neoplasm of bladder; Z95.5 Presence of coronary angioplasty implant and graft; Z98.1 Arthrodesis status
CPT/HCPCS: 36415; 45380; 85025; 93005; J7121; 45378; J1610; J2001

== ENCOUNTER → 2024-08-03 | Outpatient (REF) | payer MEDICARE ==
[~2024-08-03] MED LIST changes: -GLUCAGON FOR INJ 1 MG VIAL ONE; +IOPAMIDOL 370 MG/ML 100 ML INFUS..BTL INJ ONE; -LACTATED RINGER'S 1,000 ML ONE; -LIDOCAINE HCL 2% LOCAL INJ 5 ML SDV VIAL INJ ONE; +OXYBUTYNIN CHL2.5 MG PO; -PROPOFOL IV EMULSION 0 ML IV ONE
[2024-08-03 14:50] LABS: CREATININE, SERUM 1.24 mg/dL (0.72-1.25)
== END ==
LOC: CT 13:34
PROVIDERS: ATTEND Internal Medicine
DX: J44.89 Other specified chronic obstructive pulmonary disease (principal); J96.11 Chronic respiratory failure with hypoxia; F17.211 Nicotine dependence, cigarettes, in remission
CPT/HCPCS: 36415; 71260; 82565; 84520; Q9967